=== PATIENT | female | born 1995 | race African-American/Black ===

== ENCOUNTER 2017-02-04 07:39 | Emergency (ER) | payer MEDICAID ==
[~2017-02-04] VITALS: Ht 157.5 cm; Wt 64.0 kg
[2017-02-04 09:27] VITALS: BP 142/66
[2017-02-04] MEDS ORDERED: IBUPROFEN 600MG TABLET PO ONE (09:30)
== END 2017-02-04 09:34 | disposition home or self-care (01) ==
LOC: ER 09:07
DX: H73.012 Bullous myringitis, left ear (principal); Z88.1 Allergy status to other antibiotic agents
CPT/HCPCS: 99282; 99283

== ENCOUNTER 2017-04-10 15:10 | Emergency (ER) | payer MEDICAID ==
[~2017-04-10] VITALS: Ht 157.5 cm; Wt 63.0 kg
[2017-04-10 15:58] VITALS: BP 107/65
== END 2017-04-11 03:50 | disposition left against medical advice (07) ==
LOC: ER 04-11 03:39
DX: R10.9 Unspecified abdominal pain (principal); Z53.21 Procedure and treatment not carried out due to patient leaving prior to being seen by health care provider

== ENCOUNTER 2017-04-12 16:17 | Emergency (ER) | payer MEDICAID ==
[~2017-04-12] VITALS: Ht 157.5 cm; Wt 63.0 kg
[2017-04-12] MEDS ORDERED: IBUPROFEN 600MG TABLET PO STA (21:26)
[2017-04-12 21:46] VITALS: BP 120/76
[2017-04-12 21:49] LABS: BASOPHILS % 0.5 % (0.0-2.0); CHLORIDE 110 mEq/L (98-107); EOSINOPHILS % 1.2 % (0.0-5.0); HEMATOCRIT. 34.4 % (36.0-48.0); HEMOGLOBIN. 11.4 g/dL (12.0-16.0); LYMPHOCYTES % 36.1 % (20.0-50.0); MEAN CORPUSCULAR VOLUME 75.3 fL (81.0-99.0); MEAN PLATELET VOLUME 9.9 fl (7.4-10.4); MONOCYTES % 11.7 % (2.0-8.0); NEUTROPHILS % 50.5 % (40.0-76.0); PLATELET 205 x1000/uL (130-400); RED BLOOD CELL COUNT 4.57 mill/uL (4.2-5.4); RED CELL DISTRIBUTION WIDTH 16.9 % (11.6-14.6)
[2017-04-12 21:50] LABS: INR 1.1; PROTHROMBIN TIME 11.8 sec
[2017-04-12 21:56] LABS: CARBON DIOXIDE 22 mEq/L (21-32); HCG SCREEN NEGATIVE
[2017-04-12 22:01] LABS: CLARITY URINE CLEAR (CLEAR); COLOR URINE YELLOW (YELLOW); GLUCOSE URINE NEGATIVE (NEGATIVE); KETONES URINE TRACE (NEGATIVE); LEUKOCYTE ESTERASE URINE NEGATIVE (NEGATIVE); NITRITE URINE NEGATIVE (NEGATIVE); OCCULT BLOOD URINE NEGATIVE (NEGATIVE); PH URINE 5.5 (4.5-8.0); PROTEIN URINE NEGATIVE (NEGATIVE)
== END 2017-04-12 23:30 | disposition home or self-care (01) ==
LOC: ER 16:17
DX: K80.50 Calculus of bile duct without cholangitis or cholecystitis without obstruction (principal); R11.0 Nausea; Z88.0 Allergy status to penicillin
CPT/HCPCS: 36415; 76700; 80053; 81003; 83690; 84703; 85025; 85610; 99285; Z7610

== ENCOUNTER 2017-06-22 18:48 | Emergency (ER) | payer MEDICAID ==
[~2017-06-22] VITALS: Ht 157.5 cm; Wt 66.0 kg
[2017-06-22] MEDS ORDERED: IBUPROFEN 600MG TABLET PO ONE (23:45)
[2017-06-23] MEDS ORDERED: HYDROCODONE/ACETAMINOPHEN 5/325MG TABLET PO ONE (01:45)
[2017-06-23 02:07] VITALS: BP 120/70
== END 2017-06-23 02:00 | disposition home or self-care (01) ==
LOC: ER 18:49
DX: S83.91XA Sprain of unspecified site of right knee, initial encounter (principal); Z88.0 Allergy status to penicillin; X50.1XXA Overexertion from prolonged static or awkward postures, initial encounter; Y93.89 Activity, other specified; Y92.89 Other specified places as the place of occurrence of the external cause; Y99.8 Other external cause status
CPT/HCPCS: 73562; 81025; 99284; L1830

== ENCOUNTER 2017-11-01 07:21 | Emergency (ER) | payer MEDICAID ==
[~2017-11-01] VITALS: Ht 157.5 cm; Wt 59.0 kg
[2017-11-01] MEDS ORDERED: SODIUM CHLORIDE 0.9% 1,000 ML IV ONE (08:08)
[2017-11-01] MEDS ORDERED: KETOROLAC 30MG/ML VIAL IV STA (08:08)
[2017-11-01 08:24] LABS: CLARITY URINE CLEAR (CLEAR); COLOR URINE YELLOW (YELLOW); KETONES URINE NEGATIVE (NEGATIVE); LEUKOCYTE ESTERASE URINE NEGATIVE (NEGATIVE); NITRITE URINE NEGATIVE (NEGATIVE); OCCULT BLOOD URINE TRACE (NEGATIVE); PH URINE 5.5 (4.5-8.0); PROTEIN URINE NEGATIVE (NEGATIVE); SPECIFIC GRAVITY URINE 1.012 (1.005-1.030)
[2017-11-01 08:50] LABS: CARBON DIOXIDE 23 mEq/L (21-32); CHLORIDE 109 mEq/L (98-107)
[2017-11-01] MEDS ORDERED: ONDANSETRON HCL 4MG/2ML VIAL IV ONE (09:00)
[2017-11-01 09:05] LABS: BASOPHILS % 0.8 % (0.0-2.0); EOSINOPHILS % 2.4 % (0.0-5.0); HEMATOCRIT. 34.8 % (36.0-48.0); HEMOGLOBIN. 11.7 g/dL (12.0-16.0); LYMPHOCYTES % 31.5 % (20.0-50.0); MEAN CORPUSCULAR HEMOGLOBIN 26.1 pg (28.0-32.0); MEAN CORPUSCULAR VOLUME 77.8 fL (81.0-99.0); NEUTROPHILS % 54.3 % (40.0-76.0); PLATELET 202 x1000/uL (130-400); RED BLOOD CELL COUNT 4.48 mill/uL (4.2-5.4); RED CELL DISTRIBUTION WIDTH 16.1 % (11.6-14.6)
[2017-11-01 11:44] VITALS: BP 116/63
== END 2017-11-01 11:47 | disposition home or self-care (01) ==
LOC: ER 07:27
DX: R10.84 Generalized abdominal pain (principal); R11.2 Nausea with vomiting, unspecified; R19.7 Diarrhea, unspecified; Z88.0 Allergy status to penicillin
CPT/HCPCS: 36415; 76856; 80053; 81001; 81025; 83690; 85025; 96361; 96374; 96375; 99285; J1885; J2405; J7030; Z7610

== ENCOUNTER 2017-11-04 07:47 | Emergency (ER) | payer MEDICAID ==
[~2017-11-04] VITALS: Ht 157.5 cm; Wt 77.0 kg
[2017-11-04] MEDS ORDERED: ONDANSETRON HCL 4MG/2ML VIAL IV STA ×2 (10:25→12:32)
[2017-11-04] MEDS ORDERED: SODIUM CHLORIDE 0.9% 1,000 ML IV ONE (10:25)
[2017-11-04] MEDS ORDERED: KETOROLAC 30MG/ML VIAL IV STA (10:25)
[2017-11-04 10:53] LABS: BASOPHILS % 0.4 % (0.0-2.0); EOSINOPHILS % 0.5 % (0.0-5.0); HEMOGLOBIN. 11.4 g/dL (12.0-16.0); LYMPHOCYTES % 24.7 % (20.0-50.0); MEAN CORPUSCULAR VOLUME 77.4 fL (81.0-99.0); MEAN PLATELET VOLUME 10.1 fl (7.4-10.4); NEUTROPHILS % 64.4 % (40.0-76.0); PLATELET 214 x1000/uL (130-400); RED BLOOD CELL COUNT 4.39 mill/uL (4.2-5.4); RED CELL DISTRIBUTION WIDTH 16.4 % (11.6-14.6)
[2017-11-04] MEDS ORDERED: SODIUM CHLORIDE 0.9% 10ML VIAL ONE (10:54)
[2017-11-04] MEDS ORDERED: IOHEXOL-300 100 ML BOTTLE ONE (10:54)
[2017-11-04 11:00] LABS: INR 1.1; PROTHROMBIN TIME 11.2 sec (9.4-11.6)
[2017-11-04 11:11] LABS: CARBON DIOXIDE 22 mEq/L (21-32); CHLORIDE 112 mEq/L (98-107); HCG SCREEN NEGATIVE
[2017-11-04 11:19] LABS: CLARITY URINE CLEAR (CLEAR); COLOR URINE YELLOW (YELLOW); KETONES URINE NEGATIVE (NEGATIVE); LEUKOCYTE ESTERASE URINE NEGATIVE (NEGATIVE); NITRITE URINE NEGATIVE (NEGATIVE); OCCULT BLOOD URINE NEGATIVE (NEGATIVE); PH URINE 6.5 (4.5-8.0); PROTEIN URINE NEGATIVE (NEGATIVE); SPECIFIC GRAVITY URINE 1.011 (1.005-1.030); UROBILINOGEN URINE 0.2 E.U./dL (0.2-1.0)
[2017-11-04] MEDS ORDERED: DICYCLOMINE 10 MG/5 ML ORAL SYR PO STA (12:32)
[2017-11-04] MEDS ORDERED: VISCOUS LIDOCAINE 2% 15 ML UDC PO STA (12:32)
[2017-11-04] MEDS ORDERED: MAGNESIUM/ALUMINUM HYDROXIDE/SIMETHICONE 30ML UDC PO STA (12:32)
[2017-11-04 13:24] VITALS: BP 121/72
== END 2017-11-04 13:25 | disposition home or self-care (01) ==
LOC: ER 07:47
DX: R10.9 Unspecified abdominal pain (principal); R11.2 Nausea with vomiting, unspecified; Z98.890 Other specified postprocedural states; Z88.1 Allergy status to other antibiotic agents
CPT/HCPCS: 36415; 74177; 80053; 81003; 83690; 84703; 85025; 85610; 96361; 96374; 96375; 96376; 99285; A4216; J1885; J2405; J7030; Q9967; Z7610

== ENCOUNTER 2017-12-21 21:42 | Emergency (ER) | payer MEDICAID ==
[~2017-12-21] VITALS: Ht 157.5 cm; Wt 59.0 kg
[~2017-12-21 21:42] MED LIST: NORE-80 PO
[2017-12-21] MEDS ORDERED: KETOROLAC 30MG/ML VIAL IV ONE (23:30)
[2017-12-22 03:30] VITALS: BP 133/65
== END 2017-12-22 03:32 | disposition home or self-care (01) ==
LOC: ER 22:14
DX: R05 Cough (principal); R07.89 Other chest pain; Z88.1 Allergy status to other antibiotic agents; Z98.890 Other specified postprocedural states
CPT/HCPCS: 71045; 81025; 87804; 93005; 96374; 99285; J1885

== ENCOUNTER 2018-04-13 19:53 | Emergency (ER) | payer MEDICAID ==
[~2018-04-13] VITALS: Ht 157.5 cm; Wt 57.0 kg
[2018-04-13 23:08] LABS: CLARITY URINE CLEAR (CLEAR); COLOR URINE YELLOW (YELLOW); KETONES URINE NEGATIVE (NEGATIVE); LEUKOCYTE ESTERASE URINE NEGATIVE (NEGATIVE); NITRITE URINE NEGATIVE (NEGATIVE); OCCULT BLOOD URINE 2+ (NEGATIVE); PH URINE 5.5 (4.5-8.0); PROTEIN URINE NEGATIVE (NEGATIVE); SPECIFIC GRAVITY URINE 1.009 (1.005-1.030)
[2018-04-14] MEDS ORDERED: SODIUM CHLORIDE 0.9% 1,000 ML IV ONE (01:34)
[2018-04-14] MEDS ORDERED: MORPHINE SULFATE 10 MG/ML CPJ IV ONE (01:45)
[2018-04-14] MEDS ORDERED: ONDANSETRON HCL 4MG/2ML VIAL IV ONE ×2 (01:45→05:30)
[2018-04-14 02:14] LABS: CHLORIDE 111 mEq/L (98-107)
[2018-04-14 02:15] LABS: BASOPHILS % 0.9 % (0.0-2.0); HEMATOCRIT. 35.5 % (36.0-48.0); HEMOGLOBIN. 12.2 g/dL (12.0-16.0); INR 1.1; LYMPHOCYTES % 33.9 % (20.0-50.0); MEAN CORPUSCULAR HEMOGLOBIN 27.9 pg (28.0-32.0); MEAN CORPUSCULAR VOLUME 81.2 fL (81.0-99.0); NEUTROPHILS % 53.2 % (40.0-76.0); PLATELET 204 x1000/uL (130-400); PROTHROMBIN TIME 11.3 sec (9.4-11.6); RED BLOOD CELL COUNT 4.37 mill/uL (4.2-5.4); RED CELL DISTRIBUTION WIDTH 14.9 % (11.6-14.6)
[2018-04-14 02:21] LABS: HCG SCREEN NEGATIVE
[2018-04-14] MEDS ORDERED: KETOROLAC 30MG/ML VIAL IV ONE (05:30)
[2018-04-14 06:47] VITALS: BP 101/55
[2018-04-16] MEDS ORDERED: NITR100C MT (11:32)
[2018-04-16] MEDS ORDERED: FOLI-43 MT (11:32)
[2018-04-16] MEDS ORDERED: ONDA4TAB5 MT (11:32)
[2018-04-16] MEDS ORDERED: CYAN10009 MT (11:32)
[2018-04-16] MEDS ORDERED: IBUP-2029 MT (11:32)
== END 2018-04-14 07:20 | disposition home or self-care (01) ==
LOC: ER 21:32
DX: K56.41 Fecal impaction (principal); Z88.0 Allergy status to penicillin; Z98.890 Other specified postprocedural states
CPT/HCPCS: 36415; 74176; 80053; 81003; 83690; 84703; 85025; 85610; 87086; 96361; 96374; 96375; 96376; 99285; J1885; J2270; J2405; J7030; Z7610

== ENCOUNTER 2018-05-14 04:59 | Emergency (ER) | payer MEDICAID, OTHER ==
[~2018-05-14] VITALS: Ht 157.5 cm; Wt 96.0 kg
[~2018-05-14 04:59] MED LIST changes: +CYAN10009 MT; +FOLI-43 MT; +IBUP-2029 MT; +NITR100C MT; +ONDA4TAB5 MT
[2018-05-14] MEDS ORDERED: KETOROLAC 60MG/2ML VIAL IM ONE (08:45)
[2018-05-14 10:52] VITALS: BP 121/72
== END 2018-05-14 11:07 | disposition home or self-care (01) ==
LOC: ER 04:59
DX: M25.561 Pain in right knee (principal); R01.1 Cardiac murmur, unspecified; Z88.0 Allergy status to penicillin; Z98.890 Other specified postprocedural states; W01.0XXA Fall on same level from slipping, tripping and stumbling without subsequent striking against object, initial encounter; Y93.89 Activity, other specified; Y92.018 Other place in single-family (private) house as the place of occurrence of the external cause
CPT/HCPCS: 73562; 81025; 96372; 99284; J1885

== ENCOUNTER 2018-06-23 07:53 | Emergency (ER) | payer OTHER ==
[~2018-06-23] VITALS: Ht 162.6 cm; Wt 56.0 kg
[2018-06-23 09:30] VITALS: BP 125/68
== END 2018-06-23 11:18 | disposition home or self-care (01) ==
LOC: ER 11:08
DX: H60.92 Unspecified otitis externa, left ear (principal); R01.1 Cardiac murmur, unspecified; Z88.0 Allergy status to penicillin
CPT/HCPCS: 99283; Z7610

== ENCOUNTER 2018-08-31 03:28 | Emergency (ER) | payer OTHER ==
[~2018-08-31] VITALS: Ht 157.5 cm; Wt 55.0 kg
[2018-08-31] MEDS ORDERED: IBUPROFEN 600MG TABLET PO ONE (05:30)
[2018-08-31 05:54] VITALS: BP 121/62
[2018-08-31 06:58] LABS: *AMPHETAMINES SCREEN URINE NEGATIVE (NEGATIVE); *BARBITURATES SCREEN URINE NEGATIVE (NEGATIVE); *BENZODIAZEPINES SCREEN URINE NEGATIVE (NEGATIVE); *COCAINE SCREEN URINE NEGATIVE (NEGATIVE); CANNABINOID URINE SCREEN NEGATIVE (NEGATIVE); METHADONE URINE SCREEN NEGATIVE (NEGATIVE); OPIATES URINE SCREEN NEGATIVE (NEGATIVE); PHENCYCLIDINE URINE SCREEN NEGATIVE (NEGATIVE)
== END 2018-08-31 05:55 | disposition home or self-care (01) ==
LOC: ER 03:28
DX: R07.89 Other chest pain (principal); R11.2 Nausea with vomiting, unspecified; H92.02 Otalgia, left ear; Z88.0 Allergy status to penicillin; Z79.899 Other long term (current) drug therapy; Z98.890 Other specified postprocedural states
CPT/HCPCS: 71045; 80305; 81025; 93005; 99285; Z7610

== ENCOUNTER 2018-10-26 13:13 | Emergency (ER) | payer OTHER ==
[~2018-10-26] VITALS: Ht 157.5 cm; Wt 57.0 kg
[2018-10-26] MEDS ORDERED: ONDANSETRON HCL 4MG/2ML INJ IV NR (18:15)
[2018-10-26 18:24] LABS: BASOPHILS % 0.6 % (0.0-2.0); EOSINOPHILS % 0.9 % (0.0-5.0); HEMATOCRIT. 41.6 % (36.0-48.0); HEMOGLOBIN. 14.1 g/dL (12.0-16.0); LYMPHOCYTES % 32.2 % (20.0-50.0); MEAN CORPUSCULAR VOLUME 85.7 fL (81.0-99.0); MEAN PLATELET VOLUME 10.4 fl (7.4-10.4); MONOCYTES % 10.3 % (2.0-8.0); PLATELET 196 x1000/uL (130-400); RED BLOOD CELL COUNT 4.86 mill/uL (4.2-5.4); RED CELL DISTRIBUTION WIDTH 13.7 % (11.6-14.6)
[2018-10-26 18:29] LABS: CHLORIDE 109 mEq/L (98-107)
[2018-10-26 18:31] LABS: INR 1.2; PROTHROMBIN TIME 11.6 sec (9.1-11.1)
[2018-10-26 19:02] LABS: CLARITY URINE CLEAR (CLEAR); COLOR URINE YELLOW (YELLOW); KETONES URINE NEGATIVE (NEGATIVE); LEUKOCYTE ESTERASE URINE NEGATIVE (NEGATIVE); NITRITE URINE NEGATIVE (NEGATIVE); OCCULT BLOOD URINE NEGATIVE (NEGATIVE); PH URINE 5.5 (4.5-8.0); PROTEIN URINE NEGATIVE (NEGATIVE)
[2018-10-26 21:07] VITALS: BP 104/48
== END 2018-10-26 21:48 | disposition home or self-care (01) ==
LOC: ER 14:33
DX: R10.31 Right lower quadrant pain (principal); N83.201 Unspecified ovarian cyst, right side; Z96.651 Presence of right artificial knee joint; Z88.1 Allergy status to other antibiotic agents; Z79.899 Other long term (current) drug therapy
CPT/HCPCS: 36415; 76856; 76857; 80053; 81003; 81025; 83690; 85025; 85610; 96374; 99284; J2405

== ENCOUNTER 2018-12-12 08:46 | Emergency (ER) | payer OTHER ==
[~2018-12-12] VITALS: Ht 157.5 cm; Wt 57.0 kg
[2018-12-12] MEDS ORDERED: ONDANSETRON HCL 4MG/2ML INJ IV ONE (10:00)
[2018-12-12] MEDS ORDERED: KETOROLAC 30MG/ML VIAL IV ONE (10:00)
[2018-12-12 11:03] LABS: CHLORIDE 110 mEq/L (98-107)
[2018-12-12 11:04] LABS: BASOPHILS % 0.3 % (0.0-2.0); EOSINOPHILS % 1.8 % (0.0-5.0); HEMATOCRIT. 39.9 % (36.0-48.0); HEMOGLOBIN. 13.3 g/dL (12.0-16.0); LYMPHOCYTES % 39.4 % (20.0-50.0); MEAN CORPUSCULAR HEMOGLOBIN 28.7 pg (28.0-32.0); MEAN CORPUSCULAR VOLUME 86.2 fL (81.0-99.0); MEAN PLATELET VOLUME 10.8 fl (7.4-10.4); MONOCYTES % 11.4 % (2.0-8.0); NEUTROPHILS % 47.1 % (40.0-76.0); PLATELET 228 x1000/uL (130-400); RED BLOOD CELL COUNT 4.62 mill/uL (4.2-5.4); RED CELL DISTRIBUTION WIDTH 14.2 % (11.6-14.6)
[2018-12-12 11:13] LABS: HCG SCREEN NEGATIVE
[2018-12-12] MEDS ORDERED: OXYCODONE HCL/ACETAMINOPHEN 5/325MG TABLET PO ONE (11:45)
[2018-12-12 12:25] VITALS: BP 107/62
== END 2018-12-12 12:31 | disposition home or self-care (01) ==
LOC: ER 09:07
DX: N83.202 Unspecified ovarian cyst, left side (principal); N83.201 Unspecified ovarian cyst, right side
CPT/HCPCS: 36415; 76856; 80053; 81025; 84703; 85025; 96374; 96375; 99284; J1885; J2405

== ENCOUNTER 2019-04-15 20:28 | Emergency (ER) | payer MEDICAID, OTHER ==
[~2019-04-15] VITALS: Ht 157.5 cm; Wt 57.0 kg
[2019-04-15] MEDS ORDERED: KETOROLAC 60MG/2ML VIAL IM ONE (22:30)
[2019-04-16 00:25] VITALS: BP 127/68
== END 2019-04-16 00:25 | disposition home or self-care (01) ==
LOC: ER 20:28
DX: S39.012A Strain of muscle, fascia and tendon of lower back, initial encounter (principal); M62.838 Other muscle spasm; Z88.1 Allergy status to other antibiotic agents; Z79.899 Other long term (current) drug therapy; X58.XXXA Exposure to other specified factors, initial encounter; Y93.89 Activity, other specified; Y92.89 Other specified places as the place of occurrence of the external cause; Y99.8 Other external cause status
CPT/HCPCS: 96372; 99283; J1885

== ENCOUNTER 2019-05-28 17:25 | Emergency (ER) | payer MEDICAID ==
[~2019-05-28] VITALS: Ht 157.5 cm; Wt 59.0 kg
[2019-05-28] MEDS ORDERED: SODIUM CHLORIDE 0.9% 1,000 ML IV ONE (18:09)
[2019-05-28] MEDS ORDERED: KETOROLAC 30MG/ML VIAL IV STA (18:09)
[2019-05-28 18:20] LABS: CLARITY URINE CLEAR (CLEAR); COLOR URINE YELLOW (YELLOW); KETONES URINE NEGATIVE (NEGATIVE); LEUKOCYTE ESTERASE URINE NEGATIVE (NEGATIVE); NITRITE URINE NEGATIVE (NEGATIVE); OCCULT BLOOD URINE NEGATIVE (NEGATIVE); PROTEIN URINE NEGATIVE (NEGATIVE); SPECIFIC GRAVITY URINE 1.014 (1.005-1.030); UROBILINOGEN URINE 0.2 E.U./dL (0.2-1.0)
[2019-05-28 18:26] LABS: BASOPHILS % 0.4 % (0.0-2.0); EOSINOPHILS % 0.6 % (0.0-5.0); HEMATOCRIT. 39.6 % (36.0-48.0); HEMOGLOBIN. 13.5 g/dL (12.0-16.0); LYMPHOCYTES % 34.2 % (20.0-50.0); MEAN CORPUSCULAR HEMOGLOBIN 28.5 pg (28.0-32.0); MEAN CORPUSCULAR VOLUME 83.3 fL (81.0-99.0); MEAN PLATELET VOLUME 10.5 fl (7.4-10.4); MONOCYTES % 13.1 % (2.0-8.0); NEUTROPHILS % 51.7 % (40.0-76.0); PLATELET 198 x1000/uL (130-400); RED BLOOD CELL COUNT 4.75 mill/uL (4.2-5.4); RED CELL DISTRIBUTION WIDTH 14.5 % (11.6-14.6)
[2019-05-28 18:30] LABS: CHLORIDE 109 mEq/L (98-107)
[2019-05-28 18:48] LABS: HCG SCREEN NEGATIVE
[2019-05-28] MEDS ORDERED: IOHEXOL-300 100 ML BOTTLE ONE (21:14)
[2019-05-28 23:02] VITALS: BP 128/71
== END 2019-05-28 23:06 | disposition home or self-care (01) ==
LOC: ER 17:25
DX: N83.201 Unspecified ovarian cyst, right side (principal); K59.00 Constipation, unspecified; Z98.890 Other specified postprocedural states; Z88.0 Allergy status to penicillin; Z79.899 Other long term (current) drug therapy
CPT/HCPCS: 36415; 74177; 76856; 80053; 81003; 81025; 83690; 84703; 85025; 96374; 99284; J1885; J7030; Q9967

== ENCOUNTER 2019-06-04 18:23 | Emergency (ER) | payer MEDICAID ==
[~2019-06-04] VITALS: Ht 162.6 cm; Wt 63.0 kg
[2019-06-04 18:28] VITALS: BP 111/62
== END 2019-06-04 23:15 | disposition left against medical advice (07) ==
LOC: ER 18:23
DX: R10.31 Right lower quadrant pain (principal); R11.0 Nausea; Z53.21 Procedure and treatment not carried out due to patient leaving prior to being seen by health care provider

== ENCOUNTER 2019-06-20 08:39 | Emergency (ER) | payer MEDICAID ==
[~2019-06-20] VITALS: Ht 157.5 cm; Wt 61.0 kg
[2019-06-20] MEDS ORDERED: ALBUTEROL (0.083%) 2.5MG/3ML NEB HHN STA (09:16)
[2019-06-20] MEDS ORDERED: IBUPROFEN 600MG TABLET PO ONE (09:30)
[2019-06-20] MEDS ORDERED: SODIUM CHLORIDE 0.9% 1,000 ML IV ONE (10:47)
[2019-06-20 12:44] LABS: BASOPHILS % 0.2 % (0.0-2.0); EOSINOPHILS % 0.7 % (0.0-5.0); HEMOGLOBIN. 11.8 g/dL (12.0-16.0); LYMPHOCYTES % 14.3 % (20.0-50.0); MEAN CORPUSCULAR HEMOGLOBIN 28.9 pg (28.0-32.0); MEAN CORPUSCULAR VOLUME 83.1 fL (81.0-99.0); MEAN PLATELET VOLUME 9.6 fl (7.4-10.4); MONOCYTES % 12.4 % (2.0-8.0); NEUTROPHILS % 72.4 % (40.0-76.0); PLATELET 183 x1000/uL (130-400); RED BLOOD CELL COUNT 4.09 mill/uL (4.2-5.4); RED CELL DISTRIBUTION WIDTH 14.7 % (11.6-14.6)
[2019-06-20 12:51] LABS: CHLORIDE 113 mEq/L (98-107)
[2019-06-20 13:55] VITALS: BP 112/55
== END 2019-06-20 14:11 | disposition home or self-care (01) ==
LOC: ER 08:39
DX: R05 Cough (principal); R07.89 Other chest pain; R03.0 Elevated blood-pressure reading, without diagnosis of hypertension
CPT/HCPCS: 36415; 71045; 80048; 81025; 85025; 93005; 94640; 99284; J7030; J7611

== ENCOUNTER 2019-08-13 08:34 | Emergency (ER) | payer MEDICAID, OTHER ==
[~2019-08-13] VITALS: Ht 157.5 cm; Wt 55.0 kg
[~2019-08-13 08:34] MED LIST changes: +CYAN-50 MT; -CYAN10009 MT
[2019-08-13] MEDS ORDERED: KETOROLAC 30MG/ML VIAL IM STA (09:13)
[2019-08-13 09:38] LABS: BASOPHILS % 0.6 % (0.0-2.0); EOSINOPHILS % 1.1 % (0.0-5.0); HEMATOCRIT. 37.3 % (36.0-48.0); HEMOGLOBIN. 12.5 g/dL (12.0-16.0); LYMPHOCYTES % 31.6 % (20.0-50.0); MEAN CORPUSCULAR HEMOGLOBIN 28.2 pg (28.0-32.0); MEAN CORPUSCULAR VOLUME 84.3 fL (81.0-99.0); MEAN PLATELET VOLUME 10.2 fl (7.4-10.4); MONOCYTES % 11.6 % (2.0-8.0); NEUTROPHILS % 55.1 % (40.0-76.0); PLATELET 172 x1000/uL (130-400); RED BLOOD CELL COUNT 4.43 mill/uL (4.2-5.4); RED CELL DISTRIBUTION WIDTH 14.6 % (11.6-14.6)
[2019-08-13 09:42] LABS: CHLORIDE 112 mEq/L (98-107)
[2019-08-13 09:44] LABS: CLARITY URINE CLEAR (CLEAR); COLOR URINE YELLOW (YELLOW); KETONES URINE NEGATIVE (NEGATIVE); LEUKOCYTE ESTERASE URINE NEGATIVE (NEGATIVE); NITRITE URINE NEGATIVE (NEGATIVE); OCCULT BLOOD URINE NEGATIVE (NEGATIVE); PH URINE 6.5 (4.5-8.0); PROTEIN URINE NEGATIVE (NEGATIVE); SPECIFIC GRAVITY URINE 1.017 (1.005-1.030)
[2019-08-13 10:39] VITALS: BP 110/70
== END 2019-08-13 10:55 | disposition home or self-care (01) ==
LOC: ER 08:34
DX: D25.9 Leiomyoma of uterus, unspecified (principal); R10.2 Pelvic and perineal pain; R10.31 Right lower quadrant pain; N83.209 Unspecified ovarian cyst, unspecified side; R01.1 Cardiac murmur, unspecified; Z98.890 Other specified postprocedural states; Z79.899 Other long term (current) drug therapy; Z88.1 Allergy status to other antibiotic agents; Z88.0 Allergy status to penicillin
CPT/HCPCS: 36415; 76856; 80053; 81003; 81025; 85025; 96372; 99284; J1885

== ENCOUNTER 2019-08-18 01:25 | Emergency (ER) | payer MEDICAID ==
[~2019-08-18] VITALS: Ht 157.5 cm; Wt 57.2 kg
[2019-08-18] MEDS ORDERED: MORPHINE SULFATE 4 MG/ML CPJ (NOT FOR IM USE) IV STA (04:58)
[2019-08-18] MEDS ORDERED: ONDANSETRON HCL 4MG/2ML INJ IV STA (04:58)
[2019-08-18 05:12] LABS: BASOPHILS % 0.2 % (0.0-2.0); EOSINOPHILS % 0.3 % (0.0-5.0); HEMATOCRIT. 37.2 % (36.0-48.0); HEMOGLOBIN. 12.9 g/dL (12.0-16.0); MEAN CORPUSCULAR HEMOGLOBIN 28.9 pg (28.0-32.0); MEAN PLATELET VOLUME 9.9 fl (7.4-10.4); MONOCYTES % 7.9 % (2.0-8.0); NEUTROPHILS % 76.6 % (40.0-76.0); PLATELET 174 x1000/uL (130-400); RED BLOOD CELL COUNT 4.48 mill/uL (4.2-5.4); RED CELL DISTRIBUTION WIDTH 14.2 % (11.6-14.6)
[2019-08-18 05:17] LABS: CHLORIDE 109 mEq/L (98-107)
[2019-08-18 06:03] LABS: CLARITY URINE CLEAR (CLEAR); COLOR URINE YELLOW (YELLOW); KETONES URINE TRACE (NEGATIVE); LEUKOCYTE ESTERASE URINE NEGATIVE (NEGATIVE); NITRITE URINE NEGATIVE (NEGATIVE); OCCULT BLOOD URINE NEGATIVE (NEGATIVE); PROTEIN URINE NEGATIVE (NEGATIVE); SPECIFIC GRAVITY URINE 1.018 (1.005-1.030); UROBILINOGEN URINE 0.2 E.U./dL (0.2-1.0)
[2019-08-18] MEDS ORDERED: IOHEXOL-300 100 ML BOTTLE ONE (07:35)
[2019-08-18 09:15] VITALS: BP 111/54
== END 2019-08-18 09:41 | disposition left against medical advice (07) ==
LOC: ER 01:25
DX: R10.31 Right lower quadrant pain (principal); R11.2 Nausea with vomiting, unspecified; Z98.890 Other specified postprocedural states; Z79.899 Other long term (current) drug therapy; Z88.0 Allergy status to penicillin
CPT/HCPCS: 36415; 74177; 76705; 76856; 80053; 81003; 81025; 83690; 85025; 96374; 96375; 99284; J2270; J2405; Q9967

== ENCOUNTER 2019-12-22 08:09 | Emergency (ER) | payer MEDICAID, OTHER ==
[~2019-12-22] VITALS: Ht 157.5 cm; Wt 58.0 kg
[2019-12-22] MEDS ORDERED: ACETAMINOPHEN 325MG TABLET PO STA (10:43)
[2019-12-22] MEDS ORDERED: SODIUM CHLORIDE 0.9% 1,000 ML IV ONE (10:43)
[2019-12-22] MEDS ORDERED: ONDANSETRON HCL 4MG/2ML INJ IV STA (10:43)
[2019-12-22 11:17] LABS: BASOPHILS % 0.6 % (0.0-2.0); EOSINOPHILS % 1.7 % (0.0-5.0); HEMATOCRIT. 39.5 % (36.0-48.0); HEMOGLOBIN. 13.3 g/dL (12.0-16.0); LYMPHOCYTES % 31.9 % (20.0-50.0); MEAN CORPUSCULAR HEMOGLOBIN 28.1 pg (28.0-32.0); MEAN CORPUSCULAR VOLUME 83.3 fL (81.0-99.0); MONOCYTES % 10.9 % (2.0-8.0); NEUTROPHILS % 54.9 % (40.0-76.0); PLATELET 227 x1000/uL (130-400); RED BLOOD CELL COUNT 4.74 mill/uL (4.2-5.4); RED CELL DISTRIBUTION WIDTH 14.9 % (11.6-14.6)
[2019-12-22 11:24] LABS: CHLORIDE 109 mEq/L (98-107)
[2019-12-22 11:31] LABS: INR 1.1; PROTHROMBIN TIME 11.4 sec (9.6-11.0)
[2019-12-22 11:46] LABS: CLARITY URINE CLEAR (CLEAR); COLOR URINE YELLOW (YELLOW); KETONES URINE NEGATIVE (NEGATIVE); LEUKOCYTE ESTERASE URINE NEGATIVE (NEGATIVE); NITRITE URINE NEGATIVE (NEGATIVE); OCCULT BLOOD URINE NEGATIVE (NEGATIVE); PROTEIN URINE NEGATIVE (NEGATIVE); SPECIFIC GRAVITY URINE 1.017 (1.005-1.030)
[2019-12-22 14:18] VITALS: BP 109/56
[2019-12-22] MEDS ORDERED: IOHEXOL-300 100 ML BOTTLE ONE (16:22)
== END 2019-12-22 14:19 | disposition home or self-care (01) ==
LOC: ER 08:09
DX: R10.11 Right upper quadrant pain (principal); R10.31 Right lower quadrant pain; Z98.890 Other specified postprocedural states; Z79.899 Other long term (current) drug therapy; Z88.0 Allergy status to penicillin
CPT/HCPCS: 36415; 74177; 76705; 76856; 80053; 81003; 81025; 83690; 85025; 85610; 96374; 99284; J2405; J7030; Q9967

== ENCOUNTER 2020-01-04 07:10 | Emergency (ER) | payer MEDICAID ==
[~2020-01-04] VITALS: Ht 157.5 cm; Wt 130.0 kg
[2020-01-04 07:37] VITALS: BP 130/80
== END 2020-01-04 08:36 | disposition home or self-care (01) ==
LOC: ER 07:24
DX: H60.92 Unspecified otitis externa, left ear (principal); Z88.0 Allergy status to penicillin
CPT/HCPCS: 99283

== ENCOUNTER 2020-01-15 12:27 | Emergency (ER) | payer MEDICAID ==
[~2020-01-15] VITALS: Ht 157.5 cm; Wt 55.0 kg
[2020-01-15] MEDS ORDERED: ACETAMINOPHEN 325MG TABLET PO STA (12:57)
[2020-01-15] MEDS ORDERED: SODIUM CHLORIDE 0.9% 1,000 ML IV ONE (12:57)
[2020-01-15 13:22] LABS: BASOPHILS % 0.5 % (0.0-2.0); EOSINOPHILS % 0.6 % (0.0-5.0); HEMOGLOBIN. 13.5 g/dL (12.0-16.0); LYMPHOCYTES % 21.1 % (20.0-50.0); MEAN CORPUSCULAR HEMOGLOBIN 28.6 pg (28.0-32.0); MEAN CORPUSCULAR VOLUME 82.8 fL (81.0-99.0); MEAN PLATELET VOLUME 10.4 fl (7.4-10.4); MONOCYTES % 8.9 % (2.0-8.0); NEUTROPHILS % 68.9 % (40.0-76.0); PLATELET 188 x1000/uL (130-400); RED BLOOD CELL COUNT 4.71 mill/uL (4.2-5.4); RED CELL DISTRIBUTION WIDTH 14.9 % (11.6-14.6)
[2020-01-15 13:28] LABS: INR 1.1; PROTHROMBIN TIME 11.8 sec (9.6-11.0)
[2020-01-15 13:29] LABS: CHLORIDE 112 mEq/L (98-107)
[2020-01-15 13:30] LABS: HCG SCREEN NEGATIVE
[2020-01-15] MEDS ORDERED: KETOROLAC 30MG/ML VIAL IV ONE (15:00)
[2020-01-15] MEDS ORDERED: IOHEXOL-300 100 ML BOTTLE ONE (15:18)
[2020-01-15 15:26] LABS: CLARITY URINE CLEAR (CLEAR); COLOR URINE YELLOW (YELLOW); KETONES URINE NEGATIVE (NEGATIVE); LEUKOCYTE ESTERASE URINE NEGATIVE (NEGATIVE); NITRITE URINE NEGATIVE (NEGATIVE); OCCULT BLOOD URINE NEGATIVE (NEGATIVE); PROTEIN URINE NEGATIVE (NEGATIVE)
[2020-01-15 16:14] VITALS: BP 127/64
== END 2020-01-15 16:17 | disposition home or self-care (01) ==
LOC: ER 12:27
DX: R10.0 Acute abdomen (principal); R11.10 Vomiting, unspecified; R19.7 Diarrhea, unspecified; R03.0 Elevated blood-pressure reading, without diagnosis of hypertension; Z88.1 Allergy status to other antibiotic agents; Z79.899 Other long term (current) drug therapy
CPT/HCPCS: 36415; 74177; 80053; 81003; 83690; 84703; 85025; 85610; 96361; 96374; 99284; J1885; J7030; Q9967

== ENCOUNTER 2020-02-13 19:34 | Emergency (ER) | payer MEDICAID ==
[~2020-02-13] VITALS: Ht 157.5 cm; Wt 59.0 kg
[2020-02-13] MEDS ORDERED: ONDANSETRON 4MG ODT PO ONE (20:45)
[2020-02-13] MEDS ORDERED: SUMATRIPTAN SUCCINATE 6MG/0.5ML VIAL SUBCUT ONE (20:45)
[2020-02-13 21:17] VITALS: BP 106/67
[2020-02-13] MEDS ORDERED: MECLIZINE 25MG TABLET PO ONE (22:00)
== END 2020-02-13 22:36 | disposition home or self-care (01) ==
LOC: ER 19:34
DX: R51 Headache (principal); R42 Dizziness and giddiness; Z88.0 Allergy status to penicillin; Z88.1 Allergy status to other antibiotic agents; Z79.899 Other long term (current) drug therapy
CPT/HCPCS: 96372; 99283; J3030; J8597; Q0162

== ENCOUNTER 2020-03-22 13:23 | Emergency (ER) | payer MEDICAID ==
[~2020-03-22] VITALS: Ht 157.5 cm; Wt 58.9 kg
[2020-03-22] MEDS ORDERED: SODIUM CHLORIDE 0.9% 1,000 ML IV ONE ×2 (14:02→14:19)
[2020-03-22] MEDS ORDERED: MORPHINE SULFATE 4 MG/ML CPJ (NOT FOR IM USE) IV STA (14:19)
[2020-03-22] MEDS ORDERED: ONDANSETRON HCL 4MG/2ML INJ IV STA (14:19)
[2020-03-22 14:51] LABS: BASOPHILS % 0.3 % (0.0-2.0); HEMOGLOBIN. 13.6 g/dL (12.0-16.0); LYMPHOCYTES % 26.2 % (20.0-50.0); MEAN CORPUSCULAR HEMOGLOBIN 28.4 pg (28.0-32.0); MEAN CORPUSCULAR VOLUME 83.6 fL (81.0-99.0); MONOCYTES % 11.1 % (2.0-8.0); NEUTROPHILS % 61.4 % (40.0-76.0); PLATELET 207 x1000/uL (130-400); RED BLOOD CELL COUNT 4.79 mill/uL (4.2-5.4)
[2020-03-22 14:57] LABS: CHLORIDE 111 mEq/L (98-107)
[2020-03-22 14:58] LABS: CLARITY URINE CLEAR (CLEAR); COLOR URINE YELLOW (YELLOW); KETONES URINE NEGATIVE (NEGATIVE); LEUKOCYTE ESTERASE URINE NEGATIVE (NEGATIVE); NITRITE URINE NEGATIVE (NEGATIVE); OCCULT BLOOD URINE NEGATIVE (NEGATIVE); PROTEIN URINE NEGATIVE (NEGATIVE); SPECIFIC GRAVITY URINE 1.014 (1.005-1.030)
[2020-03-22 14:59] LABS: PROTHROMBIN TIME 11.3 sec (9.6-11.0)
[2020-03-22 15:02] LABS: ETHANOL BLOOD < 10 mg/dL
[2020-03-22 15:07] LABS: HCG SCREEN NEGATIVE
[2020-03-22 15:12] LABS: *AMPHETAMINES SCREEN URINE NEGATIVE (NEGATIVE); *BARBITURATES SCREEN URINE NEGATIVE (NEGATIVE); *BENZODIAZEPINES SCREEN URINE NEGATIVE (NEGATIVE); *COCAINE SCREEN URINE NEGATIVE (NEGATIVE); METHADONE URINE SCREEN NEGATIVE (NEGATIVE); OPIATES URINE SCREEN NEGATIVE (NEGATIVE); PHENCYCLIDINE URINE SCREEN NEGATIVE (NEGATIVE)
[2020-03-22 15:13] LABS: CANNABINOID URINE SCREEN NEGATIVE (NEGATIVE)
[2020-03-22 15:20] VITALS: BP 106/62
[2020-03-22] MEDS ORDERED: DIATR MEGLU/DIATRIZOATE SOLN 120ML ONE (15:32)
== END 2020-03-22 18:03 | disposition home or self-care (01) ==
LOC: ER 13:23
DX: R10.13 Epigastric pain (principal); R19.7 Diarrhea, unspecified; Z98.890 Other specified postprocedural states; Z79.899 Other long term (current) drug therapy; Z88.0 Allergy status to penicillin
CPT/HCPCS: 36415; 74176; 80053; 80305; 80320; 81003; 81025; 83690; 84703; 85025; 85610; 93005; 96361; 96374; 96375; 99285; J2270; J2405; J7030; Q9963; G0480

== ENCOUNTER 2020-08-08 07:09 | Emergency (ER) | payer MEDICAID ==
[~2020-08-08] VITALS: Ht 157.5 cm; Wt 64.0 kg
[2020-08-08] MEDS ORDERED: ONDANSETRON HCL 4MG/2ML INJ IV STA (08:22)
[2020-08-08] MEDS ORDERED: MORPHINE SULFATE 4 MG/ML CPJ (NOT FOR IM USE) IV STA (08:22)
[2020-08-08 08:45] LABS: BASOPHILS % 0.5 % (0.0-2.0); EOSINOPHILS % 0.8 % (0.0-5.0); HEMATOCRIT. 36.3 % (36.0-48.0); HEMOGLOBIN. 12.1 g/dL (12.0-16.0); LYMPHOCYTES % 27.9 % (20.0-50.0); MEAN CORPUSCULAR HEMOGLOBIN 27.4 pg (28.0-32.0); MEAN CORPUSCULAR VOLUME 82.6 fL (81.0-99.0); MEAN PLATELET VOLUME 10.1 fl (7.4-10.4); MONOCYTES % 14.5 % (2.0-8.0); NEUTROPHILS % 56.3 % (40.0-76.0); PLATELET 189 x1000/uL (130-400); RED BLOOD CELL COUNT 4.39 mill/uL (4.2-5.4); RED CELL DISTRIBUTION WIDTH 15.6 % (11.6-14.6)
[2020-08-08 08:47] LABS: CHLORIDE 112 mEq/L (98-107)
[2020-08-08] MEDS ORDERED: KETOROLAC 30MG/ML VIAL IV ONE (11:45)
[2020-08-08 12:18] VITALS: BP 122/69
== END 2020-08-08 13:30 | disposition home or self-care (01) ==
LOC: ER 07:34
DX: R07.89 Other chest pain (principal); E87.8 Other disorders of electrolyte and fluid balance, not elsewhere classified; D72.819 Decreased white blood cell count, unspecified; R03.0 Elevated blood-pressure reading, without diagnosis of hypertension
CPT/HCPCS: 36415; 71045; 80053; 83880; 84484; 85025; 93005; 96374; 96375; 99285; J1885; J2270; J2405

== ENCOUNTER 2020-12-18 11:32 | Emergency (ER) | payer MEDICAID ==
[~2020-12-18] VITALS: Ht 157.5 cm; Wt 62.0 kg
[2020-12-18] MEDS ORDERED: KETOROLAC 30MG/ML VIAL IV STA (12:31)
[2020-12-18] MEDS ORDERED: ONDANSETRON HCL 4MG/2ML INJ IV STA (12:31)
[2020-12-18] MEDS ORDERED: SODIUM CHLORIDE 0.9% 1,000 ML IV ONE (12:45)
[2020-12-18 13:22] LABS: BASOPHILS % 0.4 % (0.0-2.0); EOSINOPHILS % 1.4 % (0.0-5.0); HEMATOCRIT. 39.4 % (36.0-48.0); HEMOGLOBIN. 13.2 g/dL (12.0-16.0); LYMPHOCYTES % 41.9 % (20.0-50.0); MEAN CORPUSCULAR HEMOGLOBIN 26.4 pg (28.0-32.0); MEAN CORPUSCULAR VOLUME 78.9 fL (81.0-99.0); MEAN PLATELET VOLUME 10.6 fl (7.4-10.4); MONOCYTES % 13.6 % (2.0-8.0); NEUTROPHILS % 42.7 % (40.0-76.0); PLATELET 156 x1000/uL (130-400); RED BLOOD CELL COUNT 4.99 mill/uL (4.2-5.4); RED CELL DISTRIBUTION WIDTH 14.8 % (11.6-14.6)
[2020-12-18 13:23] LABS: CLARITY URINE CLEAR (CLEAR); COLOR URINE YELLOW (YELLOW); KETONES URINE NEGATIVE (NEGATIVE); LEUKOCYTE ESTERASE URINE TRACE (NEGATIVE); NITRITE URINE NEGATIVE (NEGATIVE); OCCULT BLOOD URINE NEGATIVE (NEGATIVE); PROTEIN URINE NEGATIVE (NEGATIVE); SPECIFIC GRAVITY URINE 1.015 (1.005-1.030)
[2020-12-18 13:34] LABS: CHLORIDE 111 mEq/L (98-107)
[2020-12-18 13:43] LABS: HCG SCREEN NEGATIVE
[2020-12-18] MEDS ORDERED: NITR100C MT (15:09)
[2020-12-18 15:35] VITALS: BP 105/50
== END 2020-12-18 16:17 | disposition home or self-care (01) ==
LOC: ER 11:32
DX: K29.70 Gastritis, unspecified, without bleeding (principal); Z88.0 Allergy status to penicillin; Z79.899 Other long term (current) drug therapy; Z98.890 Other specified postprocedural states
CPT/HCPCS: 36415; 74176; 80053; 81003; 83690; 84703; 85025; 93005; 96361; 96374; 96375; 99284; J1885; J2405; J7030

== ENCOUNTER 2021-02-21 20:32 | Emergency (ER) | payer MEDICAID ==
[~2021-02-21] VITALS: Ht 175.3 cm; Wt 73.0 kg
[2021-02-21] MEDS ORDERED: KETOROLAC 30MG/ML VIAL IV STA (22:27)
[2021-02-21] MEDS ORDERED: ONDANSETRON HCL 4MG/2ML INJ IV STA (22:27)
[2021-02-21 23:09] LABS: BASOPHILS % 0.5 % (0.0-2.0); EOSINOPHILS % 0.2 % (0.0-5.0); HEMATOCRIT. 33.6 % (36.0-48.0); HEMOGLOBIN. 11.4 g/dL (12.0-16.0); LYMPHOCYTES % 15.9 % (20.0-50.0); MEAN CORPUSCULAR HEMOGLOBIN 27.4 pg (28.0-32.0); MEAN CORPUSCULAR VOLUME 80.4 fL (81.0-99.0); MONOCYTES % 7.1 % (2.0-8.0); NEUTROPHILS % 76.3 % (40.0-76.0); PLATELET 212 x1000/uL (130-400); RED BLOOD CELL COUNT 4.18 mill/uL (4.2-5.4); RED CELL DISTRIBUTION WIDTH 16.3 % (11.6-14.6)
[2021-02-21 23:11] LABS: CHLORIDE 114 mEq/L (98-107)
[2021-02-21 23:13] LABS: CLARITY URINE CLEAR (CLEAR); COLOR URINE YELLOW (YELLOW); KETONES URINE NEGATIVE (NEGATIVE); LEUKOCYTE ESTERASE URINE NEGATIVE (NEGATIVE); NITRITE URINE NEGATIVE (NEGATIVE); OCCULT BLOOD URINE NEGATIVE (NEGATIVE); PROTEIN URINE NEGATIVE (NEGATIVE); SPECIFIC GRAVITY URINE 1.043 (1.005-1.030); UROBILINOGEN URINE 0.2 E.U./dL (0.2-1.0)
[2021-02-22] MEDS ORDERED: IBUP-2029 MT (03:32)
[2021-02-22 03:57] VITALS: BP 132/64
== END 2021-02-22 04:25 | disposition home or self-care (01) ==
LOC: ER 20:32
DX: R10.11 Right upper quadrant pain (principal); R11.2 Nausea with vomiting, unspecified; R19.7 Diarrhea, unspecified; R03.0 Elevated blood-pressure reading, without diagnosis of hypertension; D50.9 Iron deficiency anemia, unspecified; Z88.0 Allergy status to penicillin; Z88.1 Allergy status to other antibiotic agents
CPT/HCPCS: 36415; 74176; 80053; 81003; 81025; 83690; 85025; 93005; 96374; 96375; 99285; J1885; J2405

== ENCOUNTER 2021-08-25 09:19 | Emergency (ER) | payer MEDICAID ==
[~2021-08-25] VITALS: Ht 157.5 cm; Wt 63.0 kg
[2021-08-25 10:13] LABS: BASOPHILS % 0.4 % (0.0-2.0); HEMATOCRIT. 37.2 % (36.0-48.0); HEMOGLOBIN. 12.6 g/dL (12.0-16.0); MEAN CORPUSCULAR VOLUME 83.2 fL (81.0-99.0); MEAN PLATELET VOLUME 10.6 fl (7.4-10.4); MONOCYTES % 12.3 % (2.0-8.0); NEUTROPHILS % 54.3 % (40.0-76.0); PLATELET 208 x1000/uL (130-400); RED BLOOD CELL COUNT 4.48 mill/uL (4.2-5.4); RED CELL DISTRIBUTION WIDTH 15.4 % (11.6-14.6)
[2021-08-25 10:22] LABS: CHLORIDE 112 mEq/L (98-107)
[2021-08-25 10:33] LABS: B-HCG QUANTITATIVE < 1 mIU/mL (<3)
[2021-08-25] MEDS ORDERED: IBUP-2028 PO (13:27)
[2021-08-25 14:05] VITALS: BP 110/53
== END 2021-08-25 14:05 | disposition home or self-care (01) ==
LOC: ER 09:19
DX: D25.1 Intramural leiomyoma of uterus (principal)
CPT/HCPCS: 36415; 76856; 80053; 81025; 84702; 85025; 86850; 86900; 99285

== ENCOUNTER 2021-10-15 10:33 | Emergency (ER) | payer MEDICAID ==
[~2021-10-15] VITALS: Ht 157.5 cm; Wt 62.0 kg
[~2021-10-15 10:33] MED LIST changes: +IBUP-2028 PO
[2021-10-15] MEDS ORDERED: KETOROLAC 60MG/2ML VIAL IM ONE (11:30)
[2021-10-15] MEDS ORDERED: HYDROCODONE/ACETAMINOPHEN 5/325MG TABLET PO ONE (11:30)
[2021-10-15 11:40] LABS: CLARITY URINE CLEAR (CLEAR); COLOR URINE YELLOW (YELLOW); KETONES URINE NEGATIVE (NEGATIVE); LEUKOCYTE ESTERASE URINE NEGATIVE (NEGATIVE); NITRITE URINE NEGATIVE (NEGATIVE); OCCULT BLOOD URINE NEGATIVE (NEGATIVE); PH URINE 6.5 (4.5-8.0); PROTEIN URINE NEGATIVE (NEGATIVE); SPECIFIC GRAVITY URINE 1.007 (1.005-1.030); UROBILINOGEN URINE 0.2 E.U./dL (0.2-1.0)
[2021-10-15 11:44] VITALS: BP 130/52
[2021-10-15] MEDS ORDERED: IBUP-2030 MT (12:14)
== END 2021-10-15 12:30 | disposition home or self-care (01) ==
LOC: ER 10:33
DX: M54.50 Low back pain, unspecified (principal); Z88.0 Allergy status to penicillin; Z79.899 Other long term (current) drug therapy; Z98.890 Other specified postprocedural states
CPT/HCPCS: 81003; 81025; 96372; 99283; J1885

== ENCOUNTER 2021-10-17 00:44 | Emergency (ER) | payer MEDICAID ==
[~2021-10-17] VITALS: Ht 157.5 cm; Wt 62.0 kg
[~2021-10-17 00:44] MED LIST changes: +IBUP-2030 MT
[2021-10-17] MEDS ORDERED: MORPHINE SULFATE 4 MG/ML CPJ (NOT FOR IM USE) IV STA (01:07)
[2021-10-17] MEDS ORDERED: SODIUM CHLORIDE 0.9% 1,000 ML IV ONE (01:15)
[2021-10-17 01:29] LABS: BASOPHILS % 0.6 % (0.0-2.0); EOSINOPHILS % 1.9 % (0.0-5.0); HEMATOCRIT. 39.1 % (36.0-48.0); HEMOGLOBIN. 13.3 g/dL (12.0-16.0); LYMPHOCYTES % 47.2 % (20.0-50.0); MEAN CORPUSCULAR VOLUME 85.6 fL (81.0-99.0); MEAN PLATELET VOLUME 10.1 fl (7.4-10.4); MONOCYTES % 10.3 % (2.0-8.0); PLATELET 222 x1000/uL (130-400); RED BLOOD CELL COUNT 4.57 mill/uL (4.2-5.4); RED CELL DISTRIBUTION WIDTH 15.1 % (11.6-14.6)
[2021-10-17 01:31] LABS: CHLORIDE 111 mEq/L (98-107)
[2021-10-17 01:35] LABS: ETHANOL BLOOD < 10 mg/dL; HCG SCREEN NEGATIVE
[2021-10-17 02:12] LABS: CLARITY URINE CLEAR (CLEAR); COLOR URINE YELLOW (YELLOW); KETONES URINE NEGATIVE (NEGATIVE); LEUKOCYTE ESTERASE URINE NEGATIVE (NEGATIVE); NITRITE URINE NEGATIVE (NEGATIVE); OCCULT BLOOD URINE NEGATIVE (NEGATIVE); PH URINE 6.5 (4.5-8.0); PROTEIN URINE NEGATIVE (NEGATIVE); SPECIFIC GRAVITY URINE 1.013 (1.005-1.030)
[2021-10-17 02:44] LABS: UCG SCREEN NEGATIVE
[2021-10-17] MEDS ORDERED: IOHEXOL-300 100 ML BOTTLE ONE (03:14)
[2021-10-17 04:51] VITALS: BP 107/54
== END 2021-10-17 05:08 | disposition home or self-care (01) ==
LOC: ER 00:44
DX: R10.30 Lower abdominal pain, unspecified (principal); Z98.890 Other specified postprocedural states; Z79.899 Other long term (current) drug therapy; Z88.0 Allergy status to penicillin
CPT/HCPCS: 36415; 74177; 80053; 80320; 81003; 81025; 83690; 84703; 85025; 96361; 96374; 99285; J2270; J7030; Q9967; G0480

== ENCOUNTER 2021-12-07 11:55 | Emergency (ER) | payer MEDICAID ==
[~2021-12-07] VITALS: Ht 157.5 cm; Wt 59.0 kg
[2021-12-07 11:57] VITALS: BP 148/70
[2021-12-07 18:40] LABS: BASOPHILS % 0.5 % (0.0-2.0); EOSINOPHILS % 0.7 % (0.0-5.0); LYMPHOCYTES % 24.5 % (20.0-50.0); MEAN CORPUSCULAR HEMOGLOBIN 28.3 pg (28.0-32.0); MEAN PLATELET VOLUME 10.3 fl (7.4-10.4); MONOCYTES % 10.2 % (2.0-8.0); NEUTROPHILS % 64.1 % (40.0-76.0); PLATELET 226 x1000/uL (130-400); RED BLOOD CELL COUNT 4.95 mill/uL (4.2-5.4); RED CELL DISTRIBUTION WIDTH 13.7 % (11.6-14.6)
[2021-12-07 18:46] LABS: CHLORIDE 107 mEq/L (98-107)
[2021-12-07 19:02] LABS: HCG SCREEN NEGATIVE
== END 2021-12-07 21:24 | disposition home or self-care (01) ==
LOC: ER 11:55
DX: R10.31 Right lower quadrant pain (principal); I10 Essential (primary) hypertension; Z88.0 Allergy status to penicillin; Z98.890 Other specified postprocedural states
CPT/HCPCS: 36415; 71045; 80048; 80076; 84484; 84703; 85025; 93005; 99285

== ENCOUNTER 2022-01-15 07:26 | Emergency (ER) | payer MEDICAID ==
[~2022-01-15] VITALS: Ht 157.5 cm; Wt 59.0 kg
[2022-01-15] MEDS ORDERED: ACETAMINOPHEN 325MG TABLET PO STA (08:26)
[2022-01-15 08:42] LABS: CLARITY URINE CLOUDY (CLEAR); COLOR URINE YELLOW (YELLOW); KETONES URINE NEGATIVE (NEGATIVE); LEUKOCYTE ESTERASE URINE NEGATIVE (NEGATIVE); NITRITE URINE NEGATIVE (NEGATIVE); OCCULT BLOOD URINE NEGATIVE (NEGATIVE); PH URINE 5.5 (4.5-8.0); PROTEIN URINE NEGATIVE (NEGATIVE); SPECIFIC GRAVITY URINE 1.015 (1.005-1.030)
[2022-01-15 08:50] LABS: BASOPHILS % 0.7 % (0.0-2.0); EOSINOPHILS % 1.7 % (0.0-5.0); HEMATOCRIT. 37.3 % (36.0-48.0); LYMPHOCYTES % 36.8 % (20.0-50.0); MEAN CORPUSCULAR HEMOGLOBIN 29.2 pg (28.0-32.0); MEAN CORPUSCULAR VOLUME 83.9 fL (81.0-99.0); MEAN PLATELET VOLUME 10.6 fl (7.4-10.4); NEUTROPHILS % 47.8 % (40.0-76.0); PLATELET 198 x1000/uL (130-400); RED BLOOD CELL COUNT 4.45 mill/uL (4.2-5.4); RED CELL DISTRIBUTION WIDTH 13.9 % (11.6-14.6)
[2022-01-15 08:58] LABS: CHLORIDE 109 mEq/L (98-107)
[2022-01-15] MEDS ORDERED: MORPHINE SULFATE 4 MG/ML CPJ (NOT FOR IM USE) IV ONE (10:45)
[2022-01-15] MEDS ORDERED: KETOROLAC 15MG/ML VIAL IV ONE (12:45)
[2022-01-15 13:37] VITALS: BP 115/65
== END 2022-01-15 13:42 | disposition home or self-care (01) ==
LOC: ER 07:26
DX: R10.31 Right lower quadrant pain (principal); Z88.0 Allergy status to penicillin; Z79.899 Other long term (current) drug therapy; Z98.890 Other specified postprocedural states
CPT/HCPCS: 36415; 76705; 76856; 76857; 80053; 81003; 81025; 83690; 84702; 85025; 93976; 96374; 96375; 99284; J1885; J2270

== ENCOUNTER 2022-01-27 19:09 | Emergency (ER) | payer MEDICAID ==
[~2022-01-27] VITALS: Ht 157.5 cm; Wt 59.0 kg
[2022-01-27] MEDS ORDERED: ACETAMINOPHEN 325MG TABLET PO ONE (20:15)
[2022-01-27] MEDS ORDERED: IBUP-2028 MT (22:07)
[2022-01-27 22:38] VITALS: BP 124/62
== END 2022-01-27 22:40 | disposition home or self-care (01) ==
LOC: ER 19:09
DX: M25.511 Pain in right shoulder (principal); Z91.81 History of falling
CPT/HCPCS: 73030; 81025; 99283

== ENCOUNTER 2022-02-25 15:29 | Emergency (ER) | payer MEDICAID ==
[~2022-02-25] VITALS: Ht 152.4 cm; Wt 59.0 kg
[~2022-02-25 15:29] MED LIST changes: +IBUP-2028 MT
[2022-02-25 15:31] VITALS: BP 128/62
[2022-02-25] MEDS ORDERED: SODIUM CHLORIDE 0.9% 1,000 ML IV ONE (15:45)
== END 2022-02-25 21:28 | disposition left against medical advice (07) ==
LOC: ER 15:29
DX: R10.9 Unspecified abdominal pain (principal); Z53.21 Procedure and treatment not carried out due to patient leaving prior to being seen by health care provider
CPT/HCPCS: 76705; J7030; 99284

== ENCOUNTER 2022-02-26 07:08 | Emergency (ER) | payer MEDICAID ==
[~2022-02-26] VITALS: Ht 157.5 cm; Wt 59.0 kg
[2022-02-26] MEDS ORDERED: KETOROLAC 30MG/ML VIAL IV STA (09:58)
[2022-02-26] MEDS ORDERED: SODIUM CHLORIDE 0.9% 1,000 ML IV ONE (10:00)
[2022-02-26 10:10] LABS: CLARITY URINE CLEAR (CLEAR); COLOR URINE YELLOW (YELLOW); KETONES URINE NEGATIVE (NEGATIVE); LEUKOCYTE ESTERASE URINE NEGATIVE (NEGATIVE); NITRITE URINE NEGATIVE (NEGATIVE); OCCULT BLOOD URINE NEGATIVE (NEGATIVE); PROTEIN URINE NEGATIVE (NEGATIVE); SPECIFIC GRAVITY URINE 1.014 (1.005-1.030)
[2022-02-26 10:11] LABS: BASOPHILS % 0.5 % (0.0-2.0); EOSINOPHILS % 1.9 % (0.0-5.0); HEMATOCRIT. 36.8 % (36.0-48.0); HEMOGLOBIN. 12.6 g/dL (12.0-16.0); LYMPHOCYTES % 25.6 % (20.0-50.0); MEAN CORPUSCULAR HEMOGLOBIN 29.1 pg (28.0-32.0); MEAN CORPUSCULAR VOLUME 84.8 fL (81.0-99.0); MEAN PLATELET VOLUME 10.3 fl (7.4-10.4); MONOCYTES % 9.7 % (2.0-8.0); NEUTROPHILS % 62.3 % (40.0-76.0); PLATELET 214 x1000/uL (130-400); RED BLOOD CELL COUNT 4.34 mill/uL (4.2-5.4)
[2022-02-26 10:14] LABS: CHLORIDE 116 mEq/L (98-107)
[2022-02-26 10:25] LABS: B-HCG QUANTITATIVE < 1 mIU/mL (<3)
[2022-02-26] MEDS ORDERED: IOHEXOL-300 100 ML BOTTLE ONE (11:32)
[2022-02-26 12:58] VITALS: BP 125/49
== END 2022-02-26 12:59 | disposition home or self-care (01) ==
LOC: ER 07:08
DX: R10.11 Right upper quadrant pain (principal)
CPT/HCPCS: 36415; 74177; 80053; 81003; 83690; 84702; 85025; 96361; 96374; 99285; J1885; J7030; Q9967

== ENCOUNTER 2022-03-02 01:23 | Emergency (ER) | payer MEDICAID ==
[~2022-03-02] VITALS: Ht 160 cm; Wt 57.0 kg
[2022-03-02] MEDS ORDERED: ONDANSETRON HCL 4MG/2ML INJ IV STA (03:39)
[2022-03-02] MEDS ORDERED: KETOROLAC 30MG/ML VIAL IV STA (03:39)
[2022-03-02] MEDS ORDERED: SODIUM CHLORIDE 0.9% 1,000 ML IV ONE (03:45)
[2022-03-02 04:12] LABS: BASOPHILS % 0.4 % (0.0-2.0); EOSINOPHILS % 0.6 % (0.0-5.0); HEMATOCRIT. 38.8 % (36.0-48.0); HEMOGLOBIN. 13.2 g/dL (12.0-16.0); LYMPHOCYTES % 16.3 % (20.0-50.0); MEAN CORPUSCULAR HEMOGLOBIN 29.7 pg (28.0-32.0); MEAN PLATELET VOLUME 10.4 fl (7.4-10.4); MONOCYTES % 8.8 % (2.0-8.0); NEUTROPHILS % 73.9 % (40.0-76.0); PLATELET 201 x1000/uL (130-400); RED BLOOD CELL COUNT 4.46 mill/uL (4.2-5.4)
[2022-03-02 04:27] LABS: CHLORIDE 111 mEq/L (98-107)
[2022-03-02 04:30] LABS: HCG SCREEN NEGATIVE
[2022-03-02 06:21] LABS: CLARITY URINE CLEAR (CLEAR); COLOR URINE YELLOW (YELLOW); KETONES URINE NEGATIVE (NEGATIVE); LEUKOCYTE ESTERASE URINE NEGATIVE (NEGATIVE); NITRITE URINE NEGATIVE (NEGATIVE); OCCULT BLOOD URINE NEGATIVE (NEGATIVE); PROTEIN URINE TRACE (NEGATIVE); SPECIFIC GRAVITY URINE 1.014 (1.005-1.030); UROBILINOGEN URINE 0.2 E.U./dL (0.2-1.0)
[2022-03-02] MEDS ORDERED: NAPR-681 PO (06:57)
[2022-03-02] MEDS ORDERED: ONDA4TAB5 PO (06:57)
[2022-03-02 07:12] VITALS: BP 125/66
== END 2022-03-02 07:19 | disposition home or self-care (01) ==
LOC: ER 01:23
DX: D25.9 Leiomyoma of uterus, unspecified (principal)
CPT/HCPCS: 36415; 80053; 81003; 83690; 84703; 85025; 96361; 96374; 96375; 99284; J1885; J2405; J7030

== ENCOUNTER 2022-04-28 18:42 | Emergency (ER) | payer MEDICAID ==
[~2022-04-28] VITALS: Ht 157.5 cm; Wt 59.0 kg
[~2022-04-28 18:42] MED LIST changes: +NAPR-681 PO; +ONDA4TAB5 PO
[2022-04-28 19:05] VITALS: BP 124/92
[2022-04-28 20:33] LABS: BASOPHILS % 0.6 % (0.0-2.0); EOSINOPHILS % 2.1 % (0.0-5.0); HEMATOCRIT. 38.5 % (36.0-48.0); LYMPHOCYTES % 36.5 % (20.0-50.0); MEAN CORPUSCULAR HEMOGLOBIN 28.6 pg (28.0-32.0); MEAN CORPUSCULAR VOLUME 85.1 fL (81.0-99.0); MEAN PLATELET VOLUME 10.5 fl (7.4-10.4); MONOCYTES % 12.3 % (2.0-8.0); NEUTROPHILS % 48.5 % (40.0-76.0); PLATELET 215 x1000/uL (130-400); RED BLOOD CELL COUNT 4.52 mill/uL (4.2-5.4); RED CELL DISTRIBUTION WIDTH 13.9 % (11.6-14.6)
[2022-04-28 20:42] LABS: HCG SCREEN NEGATIVE
[2022-04-28 20:44] LABS: CHLORIDE 108 mEq/L (98-107)
== END 2022-04-29 | disposition home or self-care (01) ==
LOC: ER 18:42
DX: R07.89 Other chest pain (principal); R05.9 Cough, unspecified; J02.9 Acute pharyngitis, unspecified; Z87.19 Personal history of other diseases of the digestive system; Z90.49 Acquired absence of other specified parts of digestive tract; Z79.899 Other long term (current) drug therapy
CPT/HCPCS: 36415; 71045; 80053; 83880; 84484; 84703; 85025; 87070; 87430; 93005; 99285

== ENCOUNTER 2022-09-16 08:20 | Emergency (ER) | payer MEDICAID ==
[~2022-09-16] VITALS: Ht 157.5 cm; Wt 61.0 kg
[2022-09-16 08:35] VITALS: BP 105/54
[2022-09-16] MEDS ORDERED: ACETAMINOPHEN 325MG TABLET PO STA (08:46)
[2022-09-16] MEDS ORDERED: SODIUM CHLORIDE 0.9% 1,000 ML IV ONE (09:00)
[2022-09-16 09:17] LABS: BASOPHILS % 0.5 % (0.0-2.0); EOSINOPHILS % 2.5 % (0.0-5.0); HEMATOCRIT. 38.4 % (36.0-48.0); HEMOGLOBIN. 13.2 g/dL (12.0-16.0); LYMPHOCYTES % 32.7 % (20.0-50.0); MEAN CORPUSCULAR HEMOGLOBIN 30.5 pg (28.0-32.0); MEAN CORPUSCULAR VOLUME 89.1 fL (81.0-99.0); MEAN PLATELET VOLUME 10.6 fl (7.4-10.4); MONOCYTES % 12.1 % (2.0-8.0); NEUTROPHILS % 52.2 % (40.0-76.0); PLATELET 201 x1000/uL (130-400); RED BLOOD CELL COUNT 4.32 mill/uL (4.2-5.4)
[2022-09-16 09:22] LABS: CHLORIDE 109 mEq/L (98-107)
[2022-09-16 09:26] LABS: INR 1.2; PROTHROMBIN TIME 12.3 sec (9.6-11.0)
[2022-09-16 09:35] LABS: ETHANOL BLOOD < 10 mg/dL
[2022-09-16 10:07] LABS: HCG SCREEN NEGATIVE
[2022-09-16 10:16] LABS: CLARITY URINE CLEAR (CLEAR); COLOR URINE YELLOW (YELLOW); KETONES URINE NEGATIVE (NEGATIVE); LEUKOCYTE ESTERASE URINE NEGATIVE (NEGATIVE); NITRITE URINE NEGATIVE (NEGATIVE); OCCULT BLOOD URINE 3+ (NEGATIVE); PROTEIN URINE TRACE (NEGATIVE); SPECIFIC GRAVITY URINE 1.007 (1.005-1.030); UROBILINOGEN URINE 0.2 E.U./dL (0.2-1.0)
[2022-09-16] MEDS ORDERED: NAPR-1074 MT (10:28)
[2022-09-16 11:04] LABS: *AMPHETAMINES SCREEN URINE NEGATIVE (NEGATIVE); *BARBITURATES SCREEN URINE NEGATIVE (NEGATIVE); *BENZODIAZEPINES SCREEN URINE NEGATIVE (NEGATIVE); *COCAINE SCREEN URINE NEGATIVE (NEGATIVE); CANNABINOID URINE SCREEN NEGATIVE (NEGATIVE); METHADONE URINE SCREEN NEGATIVE (NEGATIVE); OPIATES URINE SCREEN NEGATIVE (NEGATIVE); PHENCYCLIDINE URINE SCREEN NEGATIVE (NEGATIVE)
== END 2022-09-16 11:18 | disposition home or self-care (01) ==
LOC: ER 08:20
DX: D25.9 Leiomyoma of uterus, unspecified (principal); Z13.9 Encounter for screening, unspecified; Z88.0 Allergy status to penicillin; Z79.899 Other long term (current) drug therapy; Z90.49 Acquired absence of other specified parts of digestive tract
CPT/HCPCS: 36415; 74176; 76856; 80053; 80305; 80320; 81003; 81025; 83690; 84703; 85025; 85610; 96360; 99284; J7030; G0480

== ENCOUNTER 2024-03-18 15:49 | Emergency (ER) | payer MEDICAID ==
[~2024-03-18] VITALS: Ht 157.5 cm; Wt 64.0 kg
[~2024-03-18 15:49] MED LIST changes: +NAPR-1074 MT
[2024-03-18 15:56] VITALS: O2SAT 98
[2024-03-18 16:58] LABS: BASOPHILS % 0.9 % (0.0-2.0); EOSINOPHILS % 0.9 % (0.0-5.0); HEMATOCRIT. 39.8 % (36.0-48.0); HEMOGLOBIN. 13.8 g/dL (12.0-16.0); LYMPHOCYTES % 16.6 % (20.0-50.0); MEAN CORPUSCULAR HEMOGLOBIN 29.8 pg (28.0-32.0); MEAN CORPUSCULAR HGB CONC 34.8 g/dL (31.0-37.0); MEAN CORPUSCULAR VOLUME 85.6 fL (81.0-99.0); MEAN PLATELET VOLUME 9.9 fl (7.4-10.4); MONOCYTES % 11.1 % (2.0-8.0); NEUTROPHILS % 70.5 % (40.0-76.0); PLATELET 197 x1000/uL (130-400); RED BLOOD CELL COUNT 4.65 mill/uL (4.2-5.4); RED CELL DISTRIBUTION WIDTH 13.4 % (11.6-14.6); WHITE BLOOD COUNT 4.2 x1000/uL (4.5-11.0)
[2024-03-18 17:08] VITALS: TEMP 98.1
[2024-03-18 17:09] LABS: PROTHROMBIN TIME 11.3 sec (9.6-11.0)
[2024-03-18 17:23] LABS: HCG SCREEN NEGATIVE
[2024-03-18 17:31] LABS: CHLORIDE 107 mEq/L (98-107); POTASSIUM 3.3 mEq/L (3.5-5.1); SODIUM 139 mEq/L (136-145)
[2024-03-18 17:34] LABS: CARBON DIOXIDE 24 mEq/L (21-32)
[2024-03-18 17:39] LABS: CREATININE 0.8 mg/dL (0.6-1.0); GLUCOSE 117 mg/dL (70-105); UREA NITROGEN BLOOD 7 mg/dL (9-23)
[2024-03-18] MEDS: KETOROLAC 30MG/ML VIAL IV STA (17:39)
[2024-03-18] MEDS: ONDANSETRON HCL 4MG/2ML INJ IV STA (17:39)
[2024-03-18] MEDS: MORPHINE SULFATE 4 MG/ML INJ (FOR IV/IM USE) IV ONE (17:40)
[2024-03-18] MEDS: SODIUM CHLORIDE 0.9% 1,000 ML IV ONE (17:40)
[2024-03-18 17:41] LABS: ALANINE AMINOTRANSFERASE 13 IU/L (10-49); ALBUMIN 4.9 g/dL (3.2-4.8); ASPARTATE AMINOTRANSFERASE 14 IU/L (<34); BILIRUBIN TOTAL 0.7 mg/dL (0.1-1.0); PROTEIN TOTAL 8.3 g/dL (6.0-8.3)
[2024-03-18 18:10] LABS: CLARITY URINE CLOUDY (CLEAR); COLOR URINE YELLOW (YELLOW); GLUCOSE URINE NEGATIVE (NEGATIVE); KETONES URINE 1+ (NEGATIVE); LEUKOCYTE ESTERASE URINE NEGATIVE (NEGATIVE); NITRITE URINE NEGATIVE (NEGATIVE); OCCULT BLOOD URINE NEGATIVE (NEGATIVE); PH URINE 5.5 (4.5-8.0); PROTEIN URINE 1+ (NEGATIVE); SPECIFIC GRAVITY URINE 1.018 (1.005-1.030); UROBILINOGEN URINE 0.2 E.U./dL (0.2-1.0)
[2024-03-18] MEDS ORDERED: ONDA4TAB11 PO (18:42)
[2024-03-18] MEDS ORDERED: LOPE1TAB46 MT (18:42)
[2024-03-18] MEDS ORDERED: TOPUD PO (18:42)
[2024-03-18] MEDS ORDERED: DICY-18 MT (18:44)
[2024-03-18] MEDS ORDERED: LOPE2TAB26 MT (18:44)
[2024-03-18 19:00] LABS: BACTERIA URINE 3+; RBC URINE 0-2 /hpf (0-2); SQUAMOUS EPITHELIAL CELL URINE 1+ /lpf (RARE/1+); WBC URINE 0-2 /hpf (0-2)
[2024-03-18 20:00] VITALS: BP 109/52; PULSE 83; RESP 16
== END 2024-03-18 20:11 | disposition home or self-care (01) ==
LOC: ER 15:49
DX: R19.7 Diarrhea, unspecified (principal); R11.10 Vomiting, unspecified; Z87.19 Personal history of other diseases of the digestive system; Z90.49 Acquired absence of other specified parts of digestive tract
CPT/HCPCS: 99284; 96374; 96375; 96361; 80053; 81003; 84703; 83690; 85025; 85610; 36415; J1885; J2405; J2270; J7030

== ENCOUNTER 2024-03-30 07:35 | Emergency (ER) | payer MEDICAID ==
[~2024-03-30] VITALS: Ht 157.5 cm; Wt 58.0 kg
[~2024-03-30 07:35] MED LIST changes: +DICY-18 MT; +LOPE2TAB26 MT; +ONDA4TAB11 PO; +TOPUD PO
[2024-03-30 07:40] VITALS: O2SAT 100
[2024-03-30 07:56] LABS: EOSINOPHILS % 2.6 % (0.0-5.0); HEMATOCRIT. 36.1 % (36.0-48.0); HEMOGLOBIN. 12.2 g/dL (12.0-16.0); LYMPHOCYTES % 43.6 % (20.0-50.0); MEAN CORPUSCULAR HEMOGLOBIN 28.8 pg (28.0-32.0); MEAN CORPUSCULAR HGB CONC 33.8 g/dL (31.0-37.0); MEAN CORPUSCULAR VOLUME 85.2 fL (81.0-99.0); MEAN PLATELET VOLUME 9.7 fl (7.4-10.4); MONOCYTES % 11.7 % (2.0-8.0); NEUTROPHILS % 41.1 % (40.0-76.0); PLATELET 224 x1000/uL (130-400); RED BLOOD CELL COUNT 4.23 mill/uL (4.2-5.4); RED CELL DISTRIBUTION WIDTH 13.8 % (11.6-14.6); WHITE BLOOD COUNT 2.9 x1000/uL (4.5-11.0)
[2024-03-30 08:03] LABS: CHLORIDE 110 mEq/L (98-107); SODIUM 140 mEq/L (136-145)
[2024-03-30 08:04] LABS: CALCIUM 9.1 mg/dL (8.7-10.4); CARBON DIOXIDE 26 mEq/L (21-32)
[2024-03-30 08:09] LABS: CREATININE 0.7 mg/dL (0.6-1.0); GLUCOSE 91 mg/dL (70-105); UREA NITROGEN BLOOD 8 mg/dL (9-23)
[2024-03-30 08:13] LABS: TROPONIN I HIGH SENSITIVITY < 4 ng/L (3.0-34)
[2024-03-30] MEDS: KETOROLAC 15MG/ML VIAL IM ONE (10:07)
[2024-03-30 10:09] VITALS: BP 121/78; PULSE 77; RESP 20; TEMP 98.6
== END 2024-03-30 10:12 | disposition home or self-care (01) ==
LOC: ER 07:35
DX: D72.818 Other decreased white blood cell count (principal); R07.9 Chest pain, unspecified; K80.80 Other cholelithiasis without obstruction; Z90.49 Acquired absence of other specified parts of digestive tract; Z88.0 Allergy status to penicillin; Z88.8 Allergy status to other drugs, medicaments and biological substances
CPT/HCPCS: 99285; 71045; 80048; 81025; 85025; 84484; 36415; 93005; 96372; J1885

== ENCOUNTER 2024-10-07 07:14 | Emergency (ER) | payer MEDICAID ==
[~2024-10-07] VITALS: Ht 160 cm; Wt 70.0 kg
[~2024-10-07 07:14] MED LIST changes: +ONDA-239 PO; -ONDA4TAB11 PO
[2024-10-07 07:27] VITALS: BP 118/60; O2SAT 99
[2024-10-07] MEDS ORDERED: GUAI600T26 PO (08:29)
[2024-10-07 08:45] VITALS: PULSE 86; RESP 16; TEMP 37.00296; O2SAT 99
== END 2024-10-07 08:43 | disposition home or self-care (01) ==
LOC: ER 07:14
DX: R05.9 Cough, unspecified (principal); M94.0 Chondrocostal junction syndrome [Tietze]; Z90.49 Acquired absence of other specified parts of digestive tract; Z88.0 Allergy status to penicillin
CPT/HCPCS: 71045; 93005; 99283

== ENCOUNTER 2024-11-14 10:26 | Emergency (ER) | payer MEDICAID ==
[~2024-11-14] VITALS: Ht 165.1 cm; Wt 60.0 kg
[~2024-11-14 10:26] MED LIST changes: +GUAI600T26 PO
[2024-11-14 10:29] VITALS: O2SAT 97
[2024-11-14 11:25] VITALS: BP 121/61; PULSE 96; RESP 22; TEMP 37.61412; O2SAT 97
[2024-11-14 11:28] VITALS: TEMP 99.7
[2024-11-14] MEDS: ACETAMINOPHEN 325MG TABLET PO ONE (11:28)
[2024-11-14 12:03] LABS: HEMATOCRIT. 35.2 % (36.0-48.0); HEMOGLOBIN. 11.7 g/dL (12.0-16.0); MEAN CORPUSCULAR HEMOGLOBIN 29.5 pg (28.0-32.0); MEAN CORPUSCULAR HGB CONC 33.2 g/dL (31.0-37.0); MEAN CORPUSCULAR VOLUME 88.6 fL (81.0-99.0); MEAN PLATELET VOLUME 10.5 fl (7.4-10.4); PLATELET 156 x1000/uL (130-400); RED BLOOD CELL COUNT 3.97 mill/uL (4.2-5.4); RED CELL DISTRIBUTION WIDTH 14.9 % (11.6-14.6); WHITE BLOOD COUNT 3.9 x1000/uL (4.5-11.0)
[2024-11-14 12:05] LABS: DIFFERENTIAL COMMENT 1
[2024-11-14 12:09] LABS: CHLORIDE 111 mEq/L (98-107); POTASSIUM 3.3 mEq/L (3.5-5.1); SODIUM 143 mEq/L (136-145)
[2024-11-14 12:10] LABS: CALCIUM 8.4 mg/dL (8.7-10.4); CARBON DIOXIDE 24 mEq/L (21-32)
[2024-11-14 12:15] LABS: CREATININE 0.7 mg/dL (0.6-1.0); GLUCOSE 101 mg/dL (70-105); UREA NITROGEN BLOOD 6 mg/dL (9-23)
[2024-11-14 12:21] LABS: TROPONIN I HIGH SENSITIVITY < 4 ng/L (3.0-34)
[2024-11-14 12:28] LABS: PLATELET ESTIMATE NORMAL
[2024-11-14] MEDS ORDERED: IBUP-2029 MT (12:35)
[2024-11-14] MEDS ORDERED: TAM75 MT (12:35)
== END 2024-11-14 13:33 | disposition home or self-care (01) ==
LOC: ER 10:26
DX: R07.9 Chest pain, unspecified (principal); B34.9 Viral infection, unspecified; Z90.49 Acquired absence of other specified parts of digestive tract; Z88.0 Allergy status to penicillin; Z98.890 Other specified postprocedural states
CPT/HCPCS: 36415; 71045; 80048; 84484; 85025; 93005; 99285

== ENCOUNTER 2025-04-20 16:53 | Emergency (ER) | payer MEDICAID ==
[~2025-04-20] VITALS: Ht 165.1 cm; Wt 59.0 kg
[~2025-04-20 16:53] MED LIST changes: +TAM75 MT
[2025-04-20 16:57] VITALS: O2SAT 97
[2025-04-20 17:27] LABS: BASOPHILS % 0.5 % (0.0-2.0); EOSINOPHILS % 2.6 % (0.0-5.0); HEMATOCRIT. 34.3 % (36.0-48.0); HEMOGLOBIN. 11.7 g/dL (12.0-16.0); MEAN CORPUSCULAR HEMOGLOBIN 27.6 pg (28.0-32.0); MEAN CORPUSCULAR HGB CONC 34.1 g/dL (31.0-37.0); MEAN PLATELET VOLUME 9.5 fl (7.4-10.4); MONOCYTES % 10.1 % (2.0-8.0); NEUTROPHILS % 53.8 % (40.0-76.0); PLATELET 201 x1000/uL (130-400); RED BLOOD CELL COUNT 4.24 mill/uL (4.2-5.4); RED CELL DISTRIBUTION WIDTH 15.6 % (11.6-14.6); WHITE BLOOD COUNT 3.2 x1000/uL (4.5-11.0)
[2025-04-20 17:37] LABS: INR 1.1; PROTHROMBIN TIME 11.8 sec (9.6-11.0)
[2025-04-20 17:38] LABS: CHLORIDE 111 mEq/L (98-107); POTASSIUM 3.7 mEq/L (3.5-5.1); SODIUM 141 mEq/L (136-145)
[2025-04-20 17:39] LABS: CALCIUM 8.6 mg/dL (8.7-10.4); CARBON DIOXIDE 25 mEq/L (21-32)
[2025-04-20 17:44] LABS: CREATININE 0.8 mg/dL (0.6-1.0); GLUCOSE 118 mg/dL (70-105); UREA NITROGEN BLOOD 8 mg/dL (9-23)
[2025-04-20 17:45] LABS: TROPONIN I HIGH SENSITIVITY 5 ng/L (3.0-34)
[2025-04-20 18:36] LABS: HCG SCREEN NEGATIVE
[2025-04-20 19:05] VITALS: TEMP 36.6
[2025-04-20 20:20] VITALS: BP 111/56; PULSE 61; RESP 16; O2SAT 100
[2025-04-20] MEDS ORDERED: IOHEXOL-350 100 ML BOTTLE ONE (23:36)
== END 2025-04-20 20:26 | disposition home or self-care (01) ==
LOC: ER 16:53
DX: R55 Syncope and collapse (principal); Z79.1 Long term (current) use of non-steroidal anti-inflammatories (NSAID); Z90.49 Acquired absence of other specified parts of digestive tract; Z95.2 Presence of prosthetic heart valve; Z88.0 Allergy status to penicillin; Z79.899 Other long term (current) drug therapy; Z98.890 Other specified postprocedural states
CPT/HCPCS: 99285; 71275; 71045; 80048; 84703; 83880; 83735; 85025; 85610; 86850; 86900; 86901; 84484; 36415; 93005; Q9967